=== PATIENT | male | born 1960 | race Caucasian/White ===

== ENCOUNTER 2017-07-27 19:23 | Emergency (ER) | payer OTHER ==
[~2017-07-27] VITALS: Ht 172.7 cm; Wt 100.0 kg
[2017-07-27] MEDS ORDERED: ASPI-1188 PO (20:10)
[2017-07-27] MEDS ORDERED: HYDR25TA PO (20:10)
[2017-07-27] MEDS ORDERED: LISI40TA4 PO (20:10)
[2017-07-27] MEDS ORDERED: IBUPROFEN 800 MG TABLET PO ONE (22:15)
[2017-07-27 22:17] VITALS: BP 148/98
== END 2017-07-27 22:18 | disposition home or self-care (01) ==
LOC: EMS 19:25
DX: S62.635A Displaced fracture of distal phalanx of left ring finger, initial encounter for closed fracture (principal); I10 Essential (primary) hypertension; W23.0XXA Caught, crushed, jammed, or pinched between moving objects, initial encounter; Y93.89 Activity, other specified; Y92.89 Other specified places as the place of occurrence of the external cause; Y99.8 Other external cause status
CPT/HCPCS: 99284